=== PATIENT | male | born 1955 | race Caucasian/White ===

== ENCOUNTER 2018-06-04 07:29 | Day surgery (SDC) | payer MEDICARE, OTHER ==
[2018-06-04] MEDS ORDERED: PROPOFOL 500 MG/50 ML EMU IV ONE (07:53)
[2018-06-04 09:24] VITALS: TEMP 97.6
[2018-06-04 09:38] VITALS: RESP 20
[2018-06-04 09:46] VITALS: BP 106/72; PULSE 79; O2SAT 96
== END 2018-06-04 09:56 | disposition home or self-care (01) | DRG 951 ==
LOC: SURG 07:29
PROVIDERS: ATTEND Internal Medicine Gastroenterology
DX: Z12.11 Encounter for screening for malignant neoplasm of colon (principal); E11.9 Type 2 diabetes mellitus without complications; K64.8 Other hemorrhoids
CPT/HCPCS: 82962; J2704